=== PATIENT | male | born 1980 | race African-American/Black ===

== ENCOUNTER 2020-06-13 06:19 | Day surgery (SDC) | payer MEDICARE ==
[~2020-06-13] VITALS: Ht 172.7 cm; Wt 127.0 kg
[~2020-06-13 06:19] MED LIST: ADALAT CC90 MG PO; AMOXICILLIN500 M1 PO; ASPIRIN 81 MG E81 MG PO; BENADRYL25 MG PO; CATAPRES0.2 MG PO; FLUTICASONE PRO16 GM NS; FOLATE0.4 MG PO; HYDROCODON-ACE1 EAC7 PO; LASIX40 MG; LONITEN2.5 MG PO; NIFEDIAC CC90 MG PO; NORCO 7.5/325 T1 TA1 PO; PERCOCET 10/3251 TA1 PO; PLAVIX75 MG; TOPROL XL50 MG PO; TUMS500 MG PO; VITAMIN B-12500 MCG PO
[2020-06-13 06:57] LABS: BASOPHILS 0.6 % (0-2); EOSINOPHILS 2.7 % (0-7); HEMATOCRIT 45.9 % (42.0-54.0); LYMPHOCYTES 35.7 % (15-50); MCH 25.7 pg (26.0-34.0); MCHC 30.5 g/dL (31.0-37.0); MCV 84.2 fL (80.0-100.0); MEAN PLATELET VOLUME 9.5 fL (7.4-10.4); MONOCYTES 13.3 % (2-11); NEUTROPHILS 47.7 % (40-80); PLATELET COUNT 202 10x3/uL (130-400); RBC 5.45 10x6/uL (4.20-6.10); RDW 16.6 % (11.5-14.5); WBC 5.3 10x3/uL (4.8-10.8)
[2020-06-13 07:10] LABS: ANION GAP 16.8 mmol/L (8-16); CALCIUM 7.3 mg/dL (8.5-10.1); CARBON DIOXIDE 24.9 mmol/L (21.0-32.0); CREATININE - SERUM 17.9 mg/dL (0.6-1.3); POTASSIUM - SERUM 4.7 mmol/L (3.5-5.1)
[2020-06-13 07:31] LABS: INR 1.02 (0.85-1.17); PROTIME 13.3 SECONDS (11.6-15.0)
[2020-06-13] MEDS ORDERED: RENVELA800 MG PO (07:31)
[2020-06-13] MEDS ORDERED: ELAVIL10 MG PO (07:32)
[2020-06-13] MEDS ORDERED: ATARAX 25 MG TA25 MG PO (07:33)
[2020-06-13] MEDS ORDERED: PROTONIX40 MG PO (07:34)
[2020-06-13 07:47] VITALS: Ht 172.7 cm; Wt 127.0 kg
[2020-06-13] MEDS ORDERED: NORCO 7.5-3251 EACH PO (12:56)
--- NOTE | 2020-06-13 13:22 | NUR ---
PT AWAKENING, OPA REMOVED
--- NOTE | 2020-06-13 17:41 | NUR ---
1540 PT DOSING, I AWAKEN, REMINDED PT, HE IS SUPPOSE TO BE AWAKENING TO GO HOME.
--- NOTE | 2020-06-13 18:24 | NUR ---
1820 DC INSTS REVIEWED VOICED UNDERSTANDING, RX GIVEN CRANBERRY JUICE SERVED, RELEASED IN WC, FATHER SPRING FORMER HOME.
--- NOTE | 2020-06-15 13:52 | OP ---
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 OPERATION PERFORMED: Excision of aneurysmal AV fistula and interposition of Acuseal PTFE graft in the left arm and ultrasound-guided access to the right internal jugular vein with performance of superior vena cavogram because of severe stenosis of the jugular vein from prior dialysis catheters and insertion of a hemodialysis 23 cm HemoSplit catheter. SURGEON: Richard Kennedy MD ANESTHESIA: General endotracheal per Dr. Herrera. PREOPERATIVE NOTE: Mr. Barnard is a very nice 40-year-old male from [place] I believe. He has dialysis Friday, Friday, Friday in [place] with a left arm brachiocephalic AV fistula, which I created for him about 7 years ago. He has really had no difficulties except that the fistula has become increasingly aneurysmal over the years. 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 Preoperative angiography at [facility] demonstrated no stenoses. Surgical revision was recommended. He is brought to the operating room at this time with plans to place a jump graft around the aneurysmal segment. Initially, I had planned to use an 8 or even a 12 mm Kim PTFE Propaten graft, standard wall thickness, but we had only 6 mm standard wall thickness PTFE grafts in stock. I chose to use an Acuseal graft in hopes of shortening the time necessary for him to have a tunneled dialysis catheter. I also plan to excise the aneurysmal vein itself and to insert a tunneled dialysis catheter. DESCRIPTION OF PROCEDURE: Under general endotracheal anesthesia in supine position, the patient was prepped and draped in a sterile manner. I examined the arm with ultrasound and noted the caliber of the cephalic vein just above the arterial anastomosis and in the upper arm and felt that the jump graft I planned was the correct way to treat this. The aneurysm was just very, very large and quite lengthy as well as tortuous. I did not think repair of the aneurysm would be correct. I made a transverse antecubital incision and exposed the cephalic vein and controlled it with doubly looped Silastic tapes. I then made a longitudinal incision in the upper arm and exposed the cephalic vein and controlled it there with Silastic loops. The vein was then occluded just at the arterial anastomosis. It was ligated with 0 silk proximally and distally in the OPERATIVE REPORT [id number] LEONARDO BARNARD antecubital space. The vein was then divided and an end-to-end anastomosis constructed with the Acuseal graft to the stump of vein remaining on the artery. This was done with running 6-0 Prolene and BioGlue was used to help prevent oozing or leaks at the suture line. The graft was flushed with heparinized saline and then placed in a lateral very superficial subcutaneous tunnel going up to the proximal incision. The vein there was occluded proximally and opened. The PTFE graft was shortened and bevelled and anastomosed end to side, end of graft to side of vein with running 6-0 Prolene. The vein was then again ligated and then divided distally. With release of the occluding clamps, excellent flow was established in the new AV graft. I did use BioGlue also on the second anastomosis. I then extended the proximal incision downward over the arm and dissected the aneurysm from the surrounding tissues. I did excise an ellipse of skin with the area of cannulation aneurysmal change where the skin was adherent to the underlying vein. Several tributaries to the aneurysmal vein were divided between clamps and ligated with 3-0 Vicryl ties. Hemostasis in the wound was then obtained with electrocautery and also with administration of 20 mcg of DDAVP. The wound was infiltrated and irrigated with 0.25% Marcaine without epinephrine and the wound was then closed without the use of a drain using interrupted inverted 3-0 Vicryl and in the antecubital space running intracuticular 4-0 Stratafix and the longer incision in the upper arm. Skin closure was done with alternating simple and vertical mattress sutures of 3-0 Prolene. The wounds were cleaned and dressed then with Maxorb Ag, Tegaderm, and Cavilon skin prep. Additional gauze wrapping was applied to maintain some pressure on the wound and the arm was wrapped in Coban also to maintain some gentle pressure on the surgical site. The patient's arm was then placed to the side. He was then completely reprepped and redraped. I examined the right and left internal jugular veins with ultrasound and demonstrated the left side appeared to be wide open. The right side appeared to have a rather severe stenosis just behind the clavicle, although it was large above that level. I elected to try to cannulate the right side. I made a small incision over the jugular vein at the base of the neck and through that incision with ultrasound guidance real time, I inserted a micropuncture needle into the internal jugular vein. I then advanced a 0.018 guidewire and then a small catheter over that. The wire and catheter would not pass into the superior vena cava. I then performed a superior vena cavogram through that catheter and demonstrated that there was a stenotic, but patent passage into the superior vena cava, which I was then subsequently able to cross with a 0.035 angled Glidewire. I then under fluoroscopy passed dilators and lastly a dilator peel-away introducer. I chose a 23 cm catheter and made an incision beneath the clavicle and pulled the catheter through a subcutaneous tunnel and inserted it as the peelaway sheath was removed. The ends of the catheter are positioned deep in the right atrium or even upper inferior vena cava. The catheter has a nice configuration. There were no kinks or apparent complications. Both lumens were accessed and aspirated. Free return of blood confirmed. They were then flushed with saline and dilute heparin solution, clamped and capped. The catheter was sutured to the skin near the entry site with 2-0 Prolene and the cervical incision closed with interrupted inverted 3-0 subcuticular Vicryl and Dermabond glue. The incision was dressed with Maxorb Ag, Tegaderm, and Cavilon skin prep. A standard CVL adhesive transparent dressing was used on the catheter at the exit site with also a chlorhexidine Biopatch. PLAN: The patient will be able to go home today. He is left a prescription for OPERATIVE REPORT [id number] LEONARDO BARNARD 7.5/325, 10 tablets. He can take 1 p.o. q.6 hours p.r.n. pain. He may use ice off and on for short periods of time on the arm and is advised to elevate the arm when he gets home on several pillows. He will resume or continue the same medications and renal diet, continue his same dialysis schedule. Only tomorrow at dialysis he will be dialyzed with the HemoSplit catheter. I will have him return to my office on of this week that is 2 days from now for dressing change. I am hopeful that we will be able to start accessing the Acuseal graft in about 7-10 days depending on how much swelling or pain he is having in his arm by that point. The sutures in the arm will need to remain in place for at least 2 weeks. Blood loss during the operation was estimated at 50 mL. None was replaced. Sponges, instruments, and needles were accounted for. No drain was used and no surgical specimen was submitted for histopathology. NTS:[id number] Voice Confirmation ID: [id number] DOCUMENT ID: [id number] CC: RICHARD Gillespie MD at 1352 CC: ANDREA CARBALLO MD [id number] DICTATION DATE: 06/13/20 1330 SALES DEVELOPMENT COORDINATOR: 06/13/20 2350 [facility] 06/13/20 [facility] [address] [place] [address]
== END 2020-06-13 18:20 | disposition home or self-care (01) ==
LOC: D.OPS 06:19
PROVIDERS: Anesthesiology; ATTEND Internal Medicine Nephrology
DX: N18.6 End stage renal disease (principal); Z99.2 Dependence on renal dialysis

== ENCOUNTER 2020-06-18 14:46 | Emergency (ER) | payer MEDICARE ==
[~2020-06-18 14:46] MED LIST changes: +ATARAX 25 MG TA25 MG PO; +ELAVIL10 MG PO; +NORCO 7.5-3251 EACH PO; +PROTONIX40 MG PO; +RENVELA800 MG PO
[2020-06-18 15:01] VITALS: BP 152/100; Ht 172.7 cm
== END 2020-06-18 18:32 | disposition left against medical advice (07) ==
LOC: D.ER 14:46
DX: T85.692A Other mechanical complication of permanent sutures, initial encounter (principal)

== ENCOUNTER → 2020-12-28 13:39 | Outpatient (CLI) | payer MEDICARE ==
[2020-09-13 18:41] VITALS: BMI 43.7
[~2020-12-28 13:39] MED LIST changes: +LISINOPRIL40 MG PO; +METHOCARBAMOL750 MG PO; +ROCALTROL0.25 MCG PO; +SENSIPAR60 MG PO; +TYLENOL W/CODEI1 TAB PO
== END | disposition home or self-care (01) ==
LOC: D.CT 13:39
PROVIDERS: ATTEND Surgery
DX: N18.6 End stage renal disease (principal); Z99.2 Dependence on renal dialysis

== ENCOUNTER 2021-01-07 21:42 | Inpatient (IN) | payer MEDICARE ==
[~2021-01-07] VITALS: Ht 172.7 cm; Wt 131.0 kg
--- NOTE | 2021-01-07 22:19 | NUR ---
PT DOES PERITONEAL DIALYSIS, TODAY WHEN DOING IT HIS STOMACH STARTED HURTING HAS BEEN EVERY SINCE THEN, ALSO SOB HE STATES. STATES HE IS SPITTING UP CLR STUFF, DENIES NAUSEA, VOMITNG, FEVER,
[2021-01-07 22:25] LABS: BASOPHILS 0.2 % (0-2); EOSINOPHILS 1.5 % (0-7); HEMOGLOBIN 14.5 g/dL (13.5-17.5); IMMATURE GRANULOCYTES 0.2 % (0-5); LYMPHOCYTE ABS# 0.54 10x3/uL (1.32-3.57); LYMPHOCYTES 5.7 % (15-50); MCH 28.7 pg (26.0-34.0); MCHC 32.2 g/dL (31.0-37.0); MCV 88.9 fL (80.0-100.0); MEAN PLATELET VOLUME 10.1 fL (7.4-10.4); MONOCYTES 6.6 % (2-11); NEUTROPHIL ABS# 8.11 10x3/uL (1.78-5.38); NEUTROPHILS 85.8 % (40-80); PLATELET COUNT 338 10x3/uL (130-400); RBC 5.06 10x6/uL (4.20-6.10); RDW 16.7 % (11.5-14.5); WBC 9.5 10x3/uL (4.8-10.8)
[2021-01-07] MEDS ORDERED: ROCALTROL0.25 MCG PO (22:28)
[2021-01-07] MEDS ORDERED: SENSIPAR30 MG PO (22:28)
[2021-01-07] MEDS ORDERED: METOPROLOL TART50 MG PO (22:29)
[2021-01-07] MEDS ORDERED: LISINOPRIL40 MG PO (22:29)
[2021-01-07] MEDS ORDERED: PROTONIX40 MG PO (22:29)
[2021-01-07] MEDS ORDERED: BAYER CHEWABLE81 MG PO (22:29)
[2021-01-07 22:51] LABS: ALBUMIN 2.4 g/dL (3.4-5.0); ANION GAP 13.9 mmol/L (8-16); BILIRUBIN - TOTAL 0.44 mg/dL (0.2-1.3); CALCIUM 8.5 mg/dL (8.5-10.1); CARBON DIOXIDE 28.7 mmol/L (21.0-32.0); CREATININE - SERUM 19.9 mg/dL (0.6-1.3); MAGNESIUM - SERUM 1.4 mg/dL (1.8-2.4)
[2021-01-07 22:54] LABS: POTASSIUM - SERUM 2.6 mmol/L (3.5-5.1)
[2021-01-07 23:44] VITALS: BP 138/86
[2021-01-07 23:49] VITALS: BP 155/86
[2021-01-08 00:38] VITALS: BP 122/75; BMI 42.0
--- NOTE | 2021-01-08 01:15 | NUR ---
RENAL SERVICES PAGED AT 0100 HRS. Dena KYAE APN RETURNED PAGE. INFORMED OF PT'S K+ OF 2.6 AND 20MEQ PO GINEN PER ELECTROLYTE PROTOCOL. INFORMED VSS AND PT STATED MORPHNE DID NOT TOUCH HIS PAIN. ALSO INFORMED PT DRAINED HIS PD FLUID PRIOR TO ARRIVAL AND BROUGHT A SAMPLE FOR LAB. NEW ORDERS RECEIVED AND NOTED. ST HR 104 WITH 1ST DEGRESS AV BLOCK PER CM. VSS. IV TO RAC SL. L AVF WITH FAINT BRUIT AND NO THRILL. ALERT AND ORIENTED TO PERSON,PLACE AND TIME. FATHER AT BEDSIDE.
--- NOTE | 2021-01-08 01:22 | NUR ---
ADMISSION ASSESSMENT AND HISTORY COMPLETED. HOME MEDS REVIEWED AND UPDATED.
--- NOTE | 2021-01-08 01:34 | NUR ---
BUPRENEX 0.3 IVP GIVEN FOR C/O SEVERE ABD PAIN. 1ST KCL 10MEQ 100CC INITIATED.
--- NOTE | 2021-01-08 04:30 | NUR ---
PT RESTING WITH EYES CLOSED. RESP EVEN AND REGULAR,. SR UP X1, CALL LIGHT WITHIN REACH.
[2021-01-08 04:58] LABS: EOS BF 2 %; MACROPHAGES BF 24 %; NEUT - BF 64 %
--- NOTE | 2021-01-08 06:23 | NUR ---
BUPRENEX 0.3MG SIVP GIVEN FOR C/O SEVERE ABD PAIN. FATHER AT BEDSIDE.
[2021-01-08 06:42] LABS: BASOPHILS 0.3 % (0-2); EOSINOPHILS 1.6 % (0-7); HEMATOCRIT 46.3 % (42.0-54.0); HEMOGLOBIN 14.9 g/dL (13.5-17.5); IMMATURE GRANULOCYTES 0.1 % (0-5); LYMPHOCYTE ABS# 1.18 10x3/uL (1.32-3.57); LYMPHOCYTES 15.8 % (15-50); MCH 28.7 pg (26.0-34.0); MCHC 32.2 g/dL (31.0-37.0); MEAN PLATELET VOLUME 10.5 fL (7.4-10.4); MONOCYTES 8.1 % (2-11); NEUTROPHIL ABS# 5.55 10x3/uL (1.78-5.38); NEUTROPHILS 74.1 % (40-80); PLATELET COUNT 371 10x3/uL (130-400); RDW 16.9 % (11.5-14.5); WBC 7.5 10x3/uL (4.8-10.8)
[2021-01-08 07:04] LABS: BILIRUBIN - TOTAL 0.46 mg/dL (0.2-1.3); CALCIUM 8.2 mg/dL (8.5-10.1); CARBON DIOXIDE 27.2 mmol/L (21.0-32.0); MAGNESIUM - SERUM 1.7 mg/dL (1.8-2.4); PHOSPHOROUS 7.5 mg/dL (2.5-4.9); PROTEIN - SERUM 6.3 g/dL (6.4-8.2)
[2021-01-08 07:06] LABS: ANION GAP 14.9 mmol/L (8-16); CREATININE - SERUM 20.2 mg/dL (0.6-1.3); POTASSIUM - SERUM 3.1 mmol/L (3.5-5.1)
[2021-01-08 08:53] VITALS: BP 96/64
--- NOTE | 2021-01-08 10:56 | NUR ---
PT ALERT AND ORIENTED, UP WITHOUT ASSIST IN ROOM. FATHER AT BEDSIDE. TOOK ALL MEDIATIONS WITHOUT COMPLICATIONS. NO COMPLAINTS OR CONCERNS AT THIS TIME. CL IN REACH, SRX1.
--- NOTE | 2021-01-08 10:56 | NUR ---
RATIONAL FOR SCDS EXPLAINED TO PT, PT STILL REFUSED TO WEAR SCDS.
[2021-01-08 12:46] VITALS: Ht 172.7 cm; Wt 131.0 kg
[2021-01-08 13:36] VITALS: BP 120/89
--- NOTE | 2021-01-08 19:10 | NUR ---
REPORT RECEIVED. PT A&O, RESTING QUIETLY. DENIES PAIN AT THIS TIME. NO S/S OF DISTRESS OBSERVED. RR EVEN AND UNLABORED ON RA. BED LOCKED AND LOWERED, CL IN REACH. ASSESSMENT COMPLETED AT THIS TIME. PD IS NOW INDWELLING. WILL CONT POC.
[2021-01-08 21:17] VITALS: BP 126/108; BP 90/48
[2021-01-08 23:43] VITALS: BP 92/67
[2021-01-09 04:35] VITALS: BP 144/93
[2021-01-09 04:49] LABS: BASOPHILS 0.1 % (0-2); EOSINOPHILS 1.1 % (0-7); HEMATOCRIT 49.3 % (42.0-54.0); HEMOGLOBIN 15.9 g/dL (13.5-17.5); IMMATURE GRANULOCYTES 0.3 % (0-5); LYMPHOCYTE ABS# 0.64 10x3/uL (1.32-3.57); LYMPHOCYTES 9.2 % (15-50); MCH 28.8 pg (26.0-34.0); MCHC 32.3 g/dL (31.0-37.0); MCV 89.2 fL (80.0-100.0); MEAN PLATELET VOLUME 10.8 fL (7.4-10.4); MONOCYTES 9.9 % (2-11); NEUTROPHIL ABS# 5.53 10x3/uL (1.78-5.38); NEUTROPHILS 79.4 % (40-80); PLATELET COUNT 416 10x3/uL (130-400); RBC 5.53 10x6/uL (4.20-6.10); RDW 16.7 % (11.5-14.5)
[2021-01-09 05:33] LABS: ALBUMIN 1.9 g/dL (3.4-5.0); ANION GAP 15.9 mmol/L (8-16); BILIRUBIN - TOTAL 0.41 mg/dL (0.2-1.3); CALCIUM 8.3 mg/dL (8.5-10.1); CARBON DIOXIDE 25.2 mmol/L (21.0-32.0); MAGNESIUM - SERUM 1.7 mg/dL (1.8-2.4); PHOSPHOROUS 7.8 mg/dL (2.5-4.9); POTASSIUM - SERUM 3.1 mmol/L (3.5-5.1); PROTEIN - SERUM 6.3 g/dL (6.4-8.2); VANCOMYCIN - RANDOM 13.9 ug/mL (10.0-20.0)
[2021-01-09 05:46] LABS: CREATININE - SERUM 20.5 mg/dL (0.6-1.3)
--- NOTE | 2021-01-09 07:46 | NUR ---
AM MEDS GIVEN INCLUDING PRN PAIN MEDICATION D/T ABDOMINAL PAIN. RR EVEN NON LABORED. PT AWAKE AND ALERT, DAD AT BEDSIDE. NO FURTHER NEEDS VOICED. CLWR.
[2021-01-09 08:17] VITALS: BP 121/82
--- NOTE | 2021-01-09 10:57 | NUR ---
PT PD CATHETER IS DRAINING AT THIS TIME, ENCOURAGED PT TO MOVE SIDE TO SIDE TO ATTEMPT TO HAVE MORE OUTPUT. PT STATES UNDERSTANDING. NO FURTHER NEEDS VOICED. CLWR.
--- NOTE | 2021-01-09 12:07 | NUR ---
IV SITE CARE AND DRESSING CHANGE TO RIGHT AC COMPLETED.
[2021-01-09 12:42] VITALS: BP 116/78; BP 152/89
--- NOTE | 2021-01-09 15:50 | NUR ---
CALLED GA COUGHLIN TO CLARIFY GENTAMICIN CREAM PLACEMENT. I READ HER THE ORDER THAT HE HAD PUT IN THERE. SHE STATES TO PUT IT ON THE EXIT SITE AND NOT THE CAP UNTIL SHE CLARIFY'S THE ORDER WITH HIM.
[2021-01-09 15:57] VITALS: BP 118/81
--- NOTE | 2021-01-09 15:59 | NUR ---
INTO PATIENT CHART TO LOOK AT ORDERS WHILE HELPING WITH PERITONEAL DIALYSIS.
[2021-01-09 20:00] VITALS: BP 103/75
--- NOTE | 2021-01-09 20:30 | NUR ---
REPORT RECEIVED. PT A&O, UP IN BED WATCHING TV. NO S/S OF DISTRESS OBSERVED. RR EVEN & UNLABORED ON RA. BED LOCKED AND LOWERED, CL IN REACH. ASSESSMENT COMPLETED AT THIS TIME. WILL CONT POC.
--- NOTE | 2021-01-09 22:30 | NUR ---
DRESSING CHANGED TO PD SITE. GENTAMYCIN CREAM APPLIED AROUND SITE.
[2021-01-10 05:03] VITALS: BP 110/68
[2021-01-10 06:59] LABS: ALBUMIN 1.9 g/dL (3.4-5.0); ANION GAP 16.2 mmol/L (8-16); BILIRUBIN - TOTAL 0.39 mg/dL (0.2-1.3); CALCIUM 8.2 mg/dL (8.5-10.1); CARBON DIOXIDE 27.3 mmol/L (21.0-32.0); MAGNESIUM - SERUM 1.9 mg/dL (1.8-2.4); PHOSPHOROUS 8.3 mg/dL (2.5-4.9); POTASSIUM - SERUM 3.5 mmol/L (3.5-5.1); PROTEIN - SERUM 5.5 g/dL (6.4-8.2); VANCOMYCIN - RANDOM 19.8 ug/mL (10.0-20.0)
--- NOTE | 2021-01-10 07:30 | NUR ---
Lying in bed, awake/alert/oriented, T/R self ad black, cont of B/B with BRPs per self ad black, anuric, c/o aching stomach pain rated 8/10, medicated as ordered, non-pharm measures include, repositioning/reassure/movement, PD cont as ordered, call light/phone/water within reach, no s/s of acute distress observed.
[2021-01-10 07:32] LABS: BASOPHILS 0.3 % (0-2); EOSINOPHILS 2.9 % (0-7); HEMATOCRIT 46.9 % (42.0-54.0); HEMOGLOBIN 15.2 g/dL (13.5-17.5); IMMATURE GRANULOCYTES 0.1 % (0-5); LYMPHOCYTE ABS# 0.92 10x3/uL (1.32-3.57); LYMPHOCYTES 9.6 % (15-50); MCH 28.8 pg (26.0-34.0); MCHC 32.4 g/dL (31.0-37.0); MEAN PLATELET VOLUME 10.3 fL (7.4-10.4); MONOCYTES 9.9 % (2-11); NEUTROPHIL ABS# 7.43 10x3/uL (1.78-5.38); NEUTROPHILS 77.2 % (40-80); PLATELET COUNT 362 10x3/uL (130-400); RBC 5.27 10x6/uL (4.20-6.10); RDW 16.6 % (11.5-14.5); WBC 9.6 10x3/uL (4.8-10.8)
[2021-01-10 08:00] VITALS: BP 127/70
--- NOTE | 2021-01-10 09:45 | NUR ---
Pt concerned about this nurse laying side of PD cath on a towel, called Dr. Aranda, explained and she stated ok to clean outside with alcohol and cont to use as end was not compromised, explained to pt and pt ok after cleaned.
[2021-01-10 20:00] VITALS: BP 142/71
--- NOTE | 2021-01-10 21:15 | NUR ---
REPORT RECIEVED. PT A&O, UP IN BED WATCHING TV. NO S/S OF DISTRESS OBSERVED. RR EVEN & UNLABORED ON RA. BED LOCKED AND LOWERED, CL IN REACH. ASSESSMENT COMPLETED AT THIS TIME. WILL CONT POC.
--- NOTE | 2021-01-10 22:47 | NUR ---
PTS IV INFILTRATED ON DAY SHIFT. UNABLE TO OBTAIN PERIPHERAL IV ACCESS FROM STAFF. CONSULTED WITH LOBO KAYE APN. ORDERS RECEIVED FOR VASCULAR ACCESS NURSE TO PLACE IV ACCESS AND FOR NORCO 10-325 Q4H PRN.
[2021-01-11 04:00] VITALS: BP 156/68
[2021-01-11 06:13] LABS: BASOPHILS 0.3 % (0-2); EOSINOPHILS 5.5 % (0-7); HEMOGLOBIN 15.3 g/dL (13.5-17.5); IMMATURE GRANULOCYTES 0.2 % (0-5); LYMPHOCYTES 18.7 % (15-50); MCH 28.7 pg (26.0-34.0); MCHC 32.6 g/dL (31.0-37.0); MEAN PLATELET VOLUME 10.7 fL (7.4-10.4); MONOCYTES 11.4 % (2-11); NEUTROPHIL ABS# 3.75 10x3/uL (1.78-5.38); NEUTROPHILS 63.9 % (40-80); PLATELET COUNT 416 10x3/uL (130-400); RBC 5.34 10x6/uL (4.20-6.10); RDW 16.5 % (11.5-14.5)
[2021-01-11 06:15] LABS: WBC 5.9 10x3/uL (4.8-10.8)
[2021-01-11 06:17] LABS: ALBUMIN 2.1 g/dL (3.4-5.0); ANION GAP 16.6 mmol/L (8-16); BILIRUBIN - TOTAL 0.37 mg/dL (0.2-1.3); CALCIUM 8.2 mg/dL (8.5-10.1); CARBON DIOXIDE 25.6 mmol/L (21.0-32.0); MAGNESIUM - SERUM 1.7 mg/dL (1.8-2.4); PHOSPHOROUS 6.8 mg/dL (2.5-4.9); POTASSIUM - SERUM 3.2 mmol/L (3.5-5.1); PROTEIN - SERUM 6.7 g/dL (6.4-8.2)
[2021-01-11 06:19] LABS: CREATININE - SERUM 20.5 mg/dL (0.6-1.3)
--- NOTE | 2021-01-11 07:00 | NUR ---
RECEIVED BEDSIDE REPORT ON PATIENT AND ASSUMED CARE. PATIENT CURRENTLY IN SHOWER. UPON COMPLETEING SHOWER, PATIENT ALERT AND ORIENTED X 4, PERITONEAL DIALYSIS CATH TO RIGHT UPPER CHEST, INSERTION SITE C/D/I WITH NO REDNESS NOTED. GENTAMICIN SULFATE APPLIED TO INSERTION SITE AND DRESSED WITH 2X2 AND 4X4 DRESSING WITH TAPE. BBS - CLEAR AND EQUAL. HEAD TO TOE ASSESSMENT COMPLETED.
--- NOTE | 2021-01-11 07:30 | NUR ---
SPOKE TO PHARMACY REGARDING PATIENTS RANDOM VANC LEVEL THIS MORNING BEING 21.0 AND DUE TO HAVE VANC ADDED TO HIS PD AT 9 AM THIS MORNING. PER PHARMACIST WILL NOT GIVE VANC TODAY DUE TO HIGH TROUGH LEVELS.
[2021-01-11 08:23] VITALS: BP 109/74
--- NOTE | 2021-01-11 10:52 | NUR ---
Nutrition Follow-up: Good appetite/PO intake this AM. Denies N/V. Reports last BM was NEW ORDER CLERK. Noted plans for AVF vs AVG tomorrow. Diet: Renal No new wt; last wt: 275# (01/08) Labs noted: Na 131, K+ 3.2, Ca 8.2, PO4 6.8, Mg 1.7, Alb 2.1 Meds noted: Miralax, Senokot, Protonix, KDur, Sensipar, Calcitriol -Encourage PO intake and honor food preferences within diet restrictions. -MD may consider PO4 binders 2/2 hyperphosphatemia. -Need new wt. -RD will follow up within 5 days if pt still admitted.
[2021-01-11 15:11] VITALS: BP 113/63
[2021-01-11 15:21] LABS: EOS BF 6 %; MESOTHELIALS BF 2 %; NEUT - BF 88 %
--- NOTE | 2021-01-11 15:30 | NUR ---
DRAINED 1450 ML FROM PERITONEAL DIALYSIS AND REPLACED WITH 1500 ML OF 2.5% DEXTROSE LOW CALCIUM DIALYSATE. TOLERATED WELL. TO INDWELL FOR 3 HRS.
[2021-01-11 22:48] VITALS: BP 160/99
--- NOTE | 2021-01-11 23:09 | NUR ---
REPORT RECEIVED, PT UP IN BED WITH DAD AT BEDSIDE, A&O. NO S/S OF DISTRESS OBSERVED. RR EVEN AND UNLABORED ON RA. BED LOCKED AND LOWERED, CL IN REACH. ASSESSMENT COMPLETE. WILL CONT POC.
[2021-01-12 04:00] VITALS: BP 133/71
[2021-01-12 06:43] LABS: BASOPHILS 0.4 % (0-2); EOSINOPHILS 6.3 % (0-7); HEMATOCRIT 41.7 % (42.0-54.0); HEMOGLOBIN 13.5 g/dL (13.5-17.5); IMMATURE GRANULOCYTES 0.2 % (0-5); LYMPHOCYTE ABS# 0.93 10x3/uL (1.32-3.57); LYMPHOCYTES 17.9 % (15-50); MCH 28.5 pg (26.0-34.0); MCHC 32.4 g/dL (31.0-37.0); MCV 88.2 fL (80.0-100.0); MEAN PLATELET VOLUME 9.4 fL (7.4-10.4); MONOCYTES 13.6 % (2-11); NEUTROPHIL ABS# 3.21 10x3/uL (1.78-5.38); NEUTROPHILS 61.6 % (40-80); PLATELET COUNT 372 10x3/uL (130-400); RBC 4.73 10x6/uL (4.20-6.10); RDW 16.4 % (11.5-14.5); WBC 5.2 10x3/uL (4.8-10.8)
[2021-01-12 07:15] LABS: BILIRUBIN - TOTAL 0.35 mg/dL (0.2-1.3); CALCIUM 7.7 mg/dL (8.5-10.1); CARBON DIOXIDE 24.4 mmol/L (21.0-32.0); MAGNESIUM - SERUM 1.7 mg/dL (1.8-2.4); PHOSPHOROUS 7.2 mg/dL (2.5-4.9); POTASSIUM - SERUM 3.4 mmol/L (3.5-5.1); PROTEIN - SERUM 5.3 g/dL (6.4-8.2); VANCOMYCIN - RANDOM 16.6 ug/mL (10.0-20.0)
[2021-01-12 07:18] LABS: CREATININE - SERUM 20.1 mg/dL (0.6-1.3)
[2021-01-12 08:00] VITALS: BP 171/83
[2021-01-12 12:00] VITALS: BP 126/68
--- NOTE | 2021-01-12 14:23 | NUR ---
BETSY COUGHLIN APN AND REPORTED THAT 1.5 SOLUTION IS DWELLING. NO NEW ORDERS.
[2021-01-12 15:00] VITALS: BP 118/72
--- NOTE | 2021-01-12 17:31 | NUR ---
PT C/O INCREASING ABD PAIN. CALLED FILIPE COUGHLIN.RECIsabel ORDERS TO WALK GIORDANO. PT WALKING GIORDANO.
[2021-01-12 21:53] VITALS: BP 123/93
[2021-01-13 01:54] VITALS: BP 148/92
[2021-01-13 06:05] LABS: BASOPHILS 0.4 % (0-2); EOSINOPHILS 6.7 % (0-7); HEMATOCRIT 41.7 % (42.0-54.0); HEMOGLOBIN 13.3 g/dL (13.5-17.5); IMMATURE GRANULOCYTES 0.2 % (0-5); LYMPHOCYTE ABS# 1.09 10x3/uL (1.32-3.57); LYMPHOCYTES 20.3 % (15-50); MCHC 31.9 g/dL (31.0-37.0); MCV 87.8 fL (80.0-100.0); MEAN PLATELET VOLUME 10.2 fL (7.4-10.4); MONOCYTES 9.5 % (2-11); NEUTROPHIL ABS# 3.39 10x3/uL (1.78-5.38); NEUTROPHILS 62.9 % (40-80); PLATELET COUNT 402 10x3/uL (130-400); RBC 4.75 10x6/uL (4.20-6.10); RDW 16.4 % (11.5-14.5); WBC 5.4 10x3/uL (4.8-10.8)
[2021-01-13 06:24] VITALS: BP 113/96
[2021-01-13 06:41] LABS: ALBUMIN 2.1 g/dL (3.4-5.0); ANION GAP 18.9 mmol/L (8-16); BILIRUBIN - TOTAL 0.36 mg/dL (0.2-1.3); CALCIUM 8.1 mg/dL (8.5-10.1); CREATININE - SERUM 19.9 mg/dL (0.6-1.3); PROTEIN - SERUM 6.3 g/dL (6.4-8.2); VANCOMYCIN - RANDOM 17.7 ug/mL (10.0-20.0)
[2021-01-13 06:54] LABS: POTASSIUM - SERUM 2.9 mmol/L (3.5-5.1)
--- NOTE | 2021-01-13 07:00 | NUR ---
RECIEVED REPORT. ASSUMED CARE OF PATIENT. BESIDE SHIFT REPORT COMPLETE. WHITE BOARD UPDATED. PATEINT SITTING TO CHAIR AT BEDSIDE. PD INITIATED BY OFFGOING NURSE AT THIS TIME TO START DRAIN. NO DISTRESS. CALL LIGHT WITHIN REACH.
--- NOTE | 2021-01-13 08:15 | NUR ---
NEW ORDERS RECIEVED FOR KDUR 40MEQ X 1 FOR K+ 2.9.
[2021-01-13 08:17] VITALS: BP 125/89
[2021-01-13 12:48] VITALS: BP 152/91
--- NOTE | 2021-01-13 15:45 | NUR ---
SCD EDUCATION PROVIDED. PATIENT AMBULATORY, FREQUENTLY AMBULATES IN ROOM, DOES NOT WANT SCDs AT THIS TIME.
[2021-01-13 16:37] VITALS: BP 139/92
--- NOTE | 2021-01-13 18:25 | NUR ---
TOLERATING PD WELL AT THIS TIME. HEPARIN CURRENTLY IN PD FLUID TO DWELL. NO DISTRESS. CALL LIGHT WITHIN REACH. NO DISTRESS.
[2021-01-13 20:26] LABS: EOS BF 4 %; MACROPHAGES BF 15 %; MESOTHELIALS BF 3 %; NEUT - BF 40 %
[2021-01-13 20:30] VITALS: BP 144/99
[2021-01-14 04:30] VITALS: BP 140/99
[2021-01-14 06:05] LABS: BASOPHILS 0.4 % (0-2); EOSINOPHILS 6.5 % (0-7); HEMATOCRIT 41.4 % (42.0-54.0); HEMOGLOBIN 13.1 g/dL (13.5-17.5); IMMATURE GRANULOCYTES 0.2 % (0-5); LYMPHOCYTE ABS# 0.95 10x3/uL (1.32-3.57); LYMPHOCYTES 20.4 % (15-50); MCH 27.9 pg (26.0-34.0); MCHC 31.6 g/dL (31.0-37.0); MCV 88.3 fL (80.0-100.0); MEAN PLATELET VOLUME 9.9 fL (7.4-10.4); MONOCYTES 10.8 % (2-11); NEUTROPHIL ABS# 2.87 10x3/uL (1.78-5.38); NEUTROPHILS 61.7 % (40-80); PLATELET COUNT 371 10x3/uL (130-400); RBC 4.69 10x6/uL (4.20-6.10); RDW 16.4 % (11.5-14.5); WBC 4.7 10x3/uL (4.8-10.8)
[2021-01-14 06:38] LABS: ANION GAP 14.2 mmol/L (8-16); BILIRUBIN - TOTAL 0.35 mg/dL (0.2-1.3); CALCIUM 8.2 mg/dL (8.5-10.1); CREATININE - SERUM 19.8 mg/dL (0.6-1.3); POTASSIUM - SERUM 3.2 mmol/L (3.5-5.1); PROTEIN - SERUM 6.1 g/dL (6.4-8.2)
--- NOTE | 2021-01-14 07:00 | NUR ---
RECEIVED REPORT. ASSUMED CARE OF PATIENT. WHITE BOARD UPDATED, BEDSIDE SHIFT REPORT COMPLETE. CALL LIGHT WITHIN REACH. NO DISTRESS. TOLERATED PD FLUID EXCHANGE WELL AT 0630, NEXT DUE AT 1500.
[2021-01-14 08:47] VITALS: BP 134/89
[2021-01-14 12:16] VITALS: BP 141/104
--- NOTE | 2021-01-14 12:39 | NUR ---
NEW ORDER RECEIVED FOR AMLODIPINE DUE TO ELEVATED BP. INITIATED FIRST DOSE AT THIS TIME.
[2021-01-14 16:22] VITALS: BP 139/94
--- NOTE | 2021-01-14 18:05 | NUR ---
NEW PD ORDERS: FILL WITH 1500ML OF 2.5% EVERY 4 HOURS - 0800, 1200, 1600, 2000, 0000. AT 0000, VANC TO BE ADDED TO PD FLUID. PATIENT WILL DWELL FLUID WITH VANC FROM 0000 TO 0600 AND THEN BE DRAINED. PATIENT WILL REMAIN EMPTY FROM 0600 TO 0800 (2 HOURS TO REMAIN DRY). AT 0800, PATIENT WILL BE START FILL CYCLES ALL OVER AGAIN. AT EACH 4 HOUR PD CYCLE, HEPARIN WILL BE ADDED TO PD FLUID.
[2021-01-14 21:58] VITALS: BP 147/101
[2021-01-15 02:07] VITALS: BP 145/101
[2021-01-15 06:07] VITALS: BP 119/89
--- NOTE | 2021-01-15 06:10 | NUR ---
BEGAN DRAINING PD FLUID AT THIS TIME.
[2021-01-15 06:34] LABS: BASOPHILS 0.7 % (0-2); EOSINOPHILS 8.3 % (0-7); HEMATOCRIT 40.9 % (42.0-54.0); HEMOGLOBIN 12.9 g/dL (13.5-17.5); LYMPHOCYTES 24.1 % (15-50); MCH 27.8 pg (26.0-34.0); MCHC 31.5 g/dL (31.0-37.0); MCV 88.1 fL (80.0-100.0); MEAN PLATELET VOLUME 10.2 fL (7.4-10.4); MONOCYTES 12.9 % (2-11); NEUTROPHIL ABS# 2.47 10x3/uL (1.78-5.38); PLATELET COUNT 404 10x3/uL (130-400); RBC 4.64 10x6/uL (4.20-6.10); RDW 16.3 % (11.5-14.5); WBC 4.6 10x3/uL (4.8-10.8)
[2021-01-15 06:52] LABS: ALBUMIN 1.8 g/dL (3.4-5.0); ANION GAP 15.2 mmol/L (8-16); BILIRUBIN - TOTAL 0.29 mg/dL (0.2-1.3); CARBON DIOXIDE 25.4 mmol/L (21.0-32.0); CREATININE - SERUM 19.5 mg/dL (0.6-1.3); POTASSIUM - SERUM 3.6 mmol/L (3.5-5.1); PROTEIN - SERUM 5.6 g/dL (6.4-8.2); VANCOMYCIN - RANDOM 36.1 ug/mL (10.0-20.0)
--- NOTE | 2021-01-15 07:00 | NUR ---
RECEIVED REPORT. ASSUMED CARE OF PATIENT. WHITE BOARD UPDATED, BEDSIDE SHIFT REPORT COMPLETE. PATIENT OOB TO SHOWER NOW. PD FLUID DRAINED AND PATIENT NOW EMPTY. PATIENT WITH D/C ORDERS TO HOME TODAY. NO DISTRESS. CALL LIGHT WITHIN REACH.
[2021-01-15 08:17] VITALS: BP 130/88
--- NOTE | 2021-01-15 10:13 | NUR ---
PATIENT CONTINUES TO PATIENTLY AWAIT FINAL DISCHARGE ORDERS. NO DISTRESS.
--- NOTE | 2021-01-15 10:35 | NUR ---
PATIENT LEFT UNIT AT THIS TIME IN STABLE CONDITION. PATIENT DISCHARGED TO HOME WITH FAMILY. PATIENT HAD NO IV TO DISCONTINUE. PATIENT VERBALIZED UNDERSTANDING OF ALL DISCHARGE INSTRUCTIONS PROVIDED.
== END 2021-01-15 10:37 | disposition home or self-care (01) | DRG 919 ==
LOC: D.ER 21:42 → OBSVTIME 23:35 → D.M2 23:35
PROVIDERS: Emergency Medicine; Family Medicine; Internal Medicine; Internal Medicine Nephrology; ADMIT Emergency Medicine; ATTEND Emergency Medicine
DX: T85.71XA Infection and inflammatory reaction due to peritoneal dialysis catheter, initial encounter (principal); N18.6 End stage renal disease; K65.8 Other peritonitis; N17.9 Acute kidney failure, unspecified; I12.0 Hypertensive chronic kidney disease with stage 5 chronic kidney disease or end stage renal disease; Z99.2 Dependence on renal dialysis; K21.9 Gastro-esophageal reflux disease without esophagitis; E87.6 Hypokalemia; Y83.9 Surgical procedure, unspecified as the cause of abnormal reaction of the patient, or of later complication, without mention of misadventure at the time of the procedure; B95.7 Other staphylococcus as the cause of diseases classified elsewhere; Z86.73 Personal history of transient ischemic attack (TIA), and cerebral infarction without residual deficits